=== PATIENT | male | born 1960 | race Caucasian/White ===

== ENCOUNTER 2020-09-12 23:56 | Emergency (ER) | payer OTHER ==
[~2020-09-12] VITALS: Ht 180.3 cm; Wt 117.9 kg
[~2020-09-12 23:56] MED LIST: BACTRIM DS TAB1 EACH PO; NOHOMEMEDICATIONS; PERCOCET 5-3251 EACH PO
[2020-09-13] MEDS ORDERED: LISINOPRIL10 MG PO (00:10)
[2020-09-13] MEDS ORDERED: XANAX 0.5 MG0.5 M1 PO (00:11)
[2020-09-13 00:42] LABS: ABSOLUTE LYMPHOCYTES 1.3 thou/uL (0.8-5.3); ABSOLUTE NEUTROPHILS 5.9 thou/uL (1.6-8.1); BASOPHILS 0.5 %; EOSINOPHILS 0.4 %; HEMATOCRIT 46.9 % (42.0-52.0); HEMOGLOBIN 16.3 gm/dL (14.0-18.0); LYMPHOCYTES 16.1 %; MCH 32.6 pg (26.0-34.0); MCHC 34.6 g/dL (28.0-37.0); MCV 94.1 fL (80.0-100.0); MONOCYTES 11.8 %; MPV 8.4 fl. (7.2-11.1); NUCLEATED RBCS 0 /100WBC; PLATELET COUNT* 231 thou/uL (150-400); POLYS 71.2 %; RBC 4.99 mil/uL (4.50-6.00); RDW-CV 12.4 % (10.5-14.5); WBC 8.2 thou/uL (4.0-11.0)
[2020-09-13 00:47] LABS: CREATININE 0.9 mg/dL (0.6-1.3); POTASSIUM 3.7 mmol/L (3.5-5.1)
[2020-09-13 00:50] LABS: INR 0.9
[2020-09-13 01:00] LABS: ALBUMIN 4.3 g/dL (3.4-5.0); MAGNESIUM 1.8 mg/dL (1.8-2.4); TOTAL BILIRUBIN 1.1 mg/dL (<0.1-1.0); TOTAL PROTEIN 8.1 g/dL (6.4-8.2)
[2020-09-13] MEDS ORDERED: PROTONIX40 MG PO (03:31)
[2020-09-13] MEDS ORDERED: ZOFRAN ODT4 MG PO (03:31)
[2020-09-13 03:44] VITALS: BP 143/89
--- NOTE | 2020-09-13 12:34 | EKG ---
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 Electrical: [facility] : 1960 Requested By: Chanell Mccollum Order Number: [id number] : Sandeep Joaquin Measurements Intervals [place] Rate: 86 P: 58 AK: 167 QRS: 15 QRSD: 99 T: 42 QT: 362 QTc: 433 Interpretive Statements Sinus rhythm Consider left atrial enlargement Low voltage, extremity leads No previous ECG available for comparison Electronically Signed On 09-13-2020 12:34:37 CDT by Sandeep Joaquin [email or web address] <ELECTRONICALLY SIGNED> By: Sandeep Joaquin MD, [facility] 09/13/20 1234 0001 0001 Sandeep Joaquin MD, FAC /EPI
== END 2020-09-13 03:46 | disposition home or self-care (01) ==
LOC: M.ERS 23:56
PROVIDERS: Emergency Medicine
DX: R10.13 Epigastric pain (principal); Z20.822 Contact with and (suspected) exposure to COVID-19; I10 Essential (primary) hypertension; N40.0 Benign prostatic hyperplasia without lower urinary tract symptoms

== ENCOUNTER 2020-11-18 19:04 | Emergency (ER) | payer OTHER ==
[~2020-11-18] VITALS: Ht 180.3 cm; Wt 117.9 kg
[~2020-11-18 19:04] MED LIST changes: +LISINOPRIL10 MG PO; +PROTONIX40 MG PO; +XANAX 0.5 MG0.5 M1 PO; +ZOFRAN ODT4 MG PO
[2020-11-18 19:08] VITALS: BP 172/108
== END 2020-11-18 19:17 | disposition left against medical advice (07) ==
LOC: M.ERS 19:04
DX: Z53.21 Procedure and treatment not carried out due to patient leaving prior to being seen by health care provider (principal)

== ENCOUNTER 2020-11-20 14:52 | Inpatient (IN) | payer OTHER ==
[~2020-11-20] VITALS: Ht 180.3 cm; Wt 120.7 kg
[2020-11-20 14:58] VITALS: BP 126/77
[2020-11-20 15:57] LABS: HEMATOCRIT 35.9 % (42.0-52.0); HEMOGLOBIN 12.8 gm/dL (14.0-18.0); MCH 33.1 pg (26.0-34.0); MCHC 35.7 g/dL (28.0-37.0); MCV 92.5 fL (80.0-100.0); MPV 7.7 fl. (7.2-11.1); NUCLEATED RBCS 0 /100WBC; PLATELET COUNT* 234 thou/uL (150-400); RBC 3.88 mil/uL (4.50-6.00); RDW-CV 12.7 % (10.5-14.5); WBC 14.4 thou/uL (4.0-11.0)
[2020-11-20 16:21] LABS: NT-PRO BRAIN NAT PEPTIDE < 5 pg/mL (<300)
[2020-11-20 16:25] LABS: MAGNESIUM < 0.1 mg/dL (1.8-2.4)
[2020-11-20 16:34] LABS: CALCIUM 8.7 mg/dL (8.5-10.1)
[2020-11-20 16:37] LABS: ABSOLUTE BASOPHILS 0.1 thou/uL (0.0-0.2); ABSOLUTE EOSINOPHILS 0.3 thou/uL (0.0-0.7); ABSOLUTE LYMPHOCYTES 1.9 thou/uL (0.8-5.3); ABSOLUTE MONOCYTES 0.7 thou/uL (0.0-1.2); ABSOLUTE NEUTROPHILS 11.4 thou/uL (1.6-8.1); HYPOCHROMASIA Occasional
[2020-11-20 16:38] LABS: LARGE PLATELETS OCCASIONAL; PLATELET ESTIMATE ADEQUATE
[2020-11-20 16:39] LABS: TOTAL BILIRUBIN 2.7 mg/dL (<0.1-1.0)
[2020-11-20 16:57] LABS: CALCIUM 8.7 mg/dL (8.5-10.1)
[2020-11-20 17:09] LABS: ALBUMIN 3.9 g/dL (3.4-5.0); MAGNESIUM 1.8 mg/dL (1.8-2.4); TOTAL BILIRUBIN 2.4 mg/dL (<0.1-1.0); TOTAL PROTEIN 7.3 g/dL (6.4-8.2)
[2020-11-20 17:27] LABS: URINE BLOOD NEGATIVE (Negative); URINE CLARITY CLEAR; URINE COLOR YELLOW; URINE GLUCOSE-RANDOM NEGATIVE (Negative); URINE KETONES 1+ (Negative); URINE LEUKOCYTES NEGATIVE (Negative); URINE NITRITE NEGATIVE (Negative); URINE PROTEIN TRACE (Negative); URINE SPECIFIC GRAVITY <= 1.005 (1.005-1.030)
[2020-11-20 17:28] LABS: ICTOTEST (BILI CONFIRMATORY) Negative (Negative); URINE BILIRUBIN 1+ (Negative)
[2020-11-20 18:23] LABS: AMP/METHAMP Negative (Negative); BARBITURATES Negative (Negative); BENZODIAZEPINES POSITIVE (Negative); COCAINE Negative (Negative); METHADONE Negative (Negative); OPIATES Negative (Negative); PCP Negative (Negative); THC Negative (Negative)
[2020-11-20 19:02] LABS: PROTIME 10.2 Seconds (9.20-11.50)
[2020-11-20 22:00] VITALS: BP 116/61
[2020-11-21] VITALS (7 sets, daily range): BP systolic 103–132; BP diastolic 50–80
[2020-11-21 03:18] LABS: ABSOLUTE LYMPHOCYTES 0.4 thou/uL (0.8-5.3); ABSOLUTE MONOCYTES 1.3 thou/uL (0.0-1.2); ABSOLUTE NEUTROPHILS 12.2 thou/uL (1.6-8.1); BASOPHILS 0.2 %; HEMOGLOBIN 11.9 gm/dL (14.0-18.0); LYMPHOCYTES 3.1 %; MCH 32.8 pg (26.0-34.0); MCHC 35.1 g/dL (28.0-37.0); MCV 93.6 fL (80.0-100.0); MONOCYTES 9.5 %; MPV 7.5 fl. (7.2-11.1); NUCLEATED RBCS 0 /100WBC; PLATELET COUNT* 219 thou/uL (150-400); POLYS 87.2 %; RBC 3.63 mil/uL (4.50-6.00); RDW-CV 12.4 % (10.5-14.5)
[2020-11-21 03:30] LABS: PROTIME 10.3 Seconds (9.20-11.50)
[2020-11-21 04:03] LABS: ALBUMIN 3.4 g/dL (3.4-5.0); CREATININE 1.1 mg/dL (0.6-1.3); MAGNESIUM 1.8 mg/dL (1.8-2.4); PHOSPHORUS* 3.1 mg/dL (2.5-4.9); POTASSIUM 4.6 mmol/L (3.5-5.1); TOTAL PROTEIN 6.7 g/dL (6.4-8.2)
--- NOTE | 2020-11-21 09:59 | EKG ---
[place] [address] ELECTROCARDIOGRAM REPORT Name: MAR DENNIS Room: [place] [address] ADM IN 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 : 1960 Requested By: Grace Farr Order Number: [id number] MD: Jose Luis Morejon Measurements Intervals [place] Rate: 95 P: 24 DE: 167 QRS: 21 QRSD: 89 T: 30 QT: 328 QTc: 413 Interpretive Statements Sinus rhythm Compared to ECG 09/13/2020 00:01:02 no change Electronically Signed On 11-21-2020 9:59:29 CDT by Jose Luis Morejon [email or web address] <ELECTRONICALLY SIGNED> By: Jose Luis Morejon MD, [facility] 11/21/20 0959 1524 1524 Jose Luis Morejon MD, [facility] /EPI
[2020-11-22 00:30] VITALS: BP 161/67
[2020-11-22 03:48] VITALS: BP 130/74
[2020-11-22 04:26] LABS: ABSOLUTE LYMPHOCYTES 0.5 thou/uL (0.8-5.3); ABSOLUTE MONOCYTES 1.3 thou/uL (0.0-1.2); ABSOLUTE NEUTROPHILS 11.4 thou/uL (1.6-8.1); BASOPHILS 0.2 %; EOSINOPHILS 0.2 %; HEMATOCRIT 31.7 % (42.0-52.0); HEMOGLOBIN 10.8 gm/dL (14.0-18.0); LYMPHOCYTES 3.7 %; MCH 32.4 pg (26.0-34.0); MCHC 34.1 g/dL (28.0-37.0); MONOCYTES 9.6 %; MPV 8.2 fl. (7.2-11.1); NUCLEATED RBCS 0 /100WBC; PLATELET COUNT* 203 thou/uL (150-400); POLYS 86.3 %; RBC 3.34 mil/uL (4.50-6.00); RDW-CV 12.8 % (10.5-14.5); WBC 13.2 thou/uL (4.0-11.0)
[2020-11-22 04:40] LABS: ALBUMIN 2.9 g/dL (3.4-5.0); CALCIUM 7.8 mg/dL (8.5-10.1); CREATININE 0.8 mg/dL (0.6-1.3); POTASSIUM 3.6 mmol/L (3.5-5.1); TOTAL BILIRUBIN 1.3 mg/dL (<0.1-1.0); TOTAL PROTEIN 6.3 g/dL (6.4-8.2)
[2020-11-22 04:48] LABS: % SATURATION 8 % (20-39); IRON 14 ug/dL (50-175)
--- NOTE | 2020-11-22 05:47 | NUR ---
RECEIVED PT FROM ED AT APPROX 2044. PT IS AWAKE AND ORIENTED X4. PT IS NOT IN DISTRESS, NO DESATURATIONS NOTED ON ROOM AIR. PT IS TRACING SR ON THE TELEVISION INSTALLER HELPER. CIWA SCORE CHARTED. PT IS ORIENTED ON THE USE OF CALL LIGHT AND ON THE ROOM SET UP. PT REMINDED TO HAVE NOTHING BY MOUTH. PT IS CLOSELY MONITORED.
[2020-11-22 05:51] LABS: ESR (SEDRATE) 42 mm/hr (0-20)
[2020-11-22 08:00] VITALS: BP 124/64
--- NOTE | 2020-11-22 09:31 | NUR ---
CM ASSESSMENT: PT A&O, INDEPENDENT WITH ADL'S, AND DRIVES. PT RESIDES AT HOME WITH SPOUSE. PT USES 0 DME. PT HAS 0 HX OF HH OR SNF. REVIEW OF PT'S CHART INFORMS THAT THE PT WAS ADMITTED FOR PANCREATITIS AND ALCOHOL WITHDRAWL. CM DISCUSSED ETOH USE AND ABUSE WITH THE PT. PT DECLINED INFO AND RESOURCES FOR ETOH TREATMENT. PT STATES 'I DON'T NEED ANY INFORMATION. I CAN QUIT WHENEVER I WANT TO'. CM WILL REMAIN AVAILABLE TO ASSIST AND FOLLOW NEEDED.
[2020-11-22 12:00] VITALS: BP 116/65
[2020-11-22 16:00] VITALS: BP 122/77
[2020-11-22 20:00] VITALS: BP 116/66
[2020-11-23] VITALS: BP 136/83
[2020-11-23 04:00] VITALS: BP 120/79
[2020-11-23 04:18] LABS: ABSOLUTE LYMPHOCYTES 0.7 thou/uL (0.8-5.3); ABSOLUTE MONOCYTES 1.1 thou/uL (0.0-1.2); ABSOLUTE NEUTROPHILS 9.4 thou/uL (1.6-8.1); BASOPHILS 0.4 %; EOSINOPHILS 0.4 %; HEMATOCRIT 29.5 % (42.0-52.0); HEMOGLOBIN 10.4 gm/dL (14.0-18.0); LYMPHOCYTES 6.6 %; MCH 32.9 pg (26.0-34.0); MCHC 35.1 g/dL (28.0-37.0); MCV 93.8 fL (80.0-100.0); MPV 7.7 fl. (7.2-11.1); NUCLEATED RBCS 0 /100WBC; PLATELET COUNT* 262 thou/uL (150-400); POLYS 82.6 %; RBC 3.15 mil/uL (4.50-6.00); RDW-CV 12.4 % (10.5-14.5); WBC 11.4 thou/uL (4.0-11.0)
[2020-11-23 04:33] LABS: ALBUMIN 2.6 g/dL (3.4-5.0); CALCIUM 7.9 mg/dL (8.5-10.1); CREATININE 0.7 mg/dL (0.6-1.3); MAGNESIUM 1.7 mg/dL (1.8-2.4); POTASSIUM 3.2 mmol/L (3.5-5.1); TOTAL BILIRUBIN 1.1 mg/dL (<0.1-1.0)
[2020-11-23 04:36] LABS: PROTIME 10.3 Seconds (9.20-11.50)
--- NOTE | 2020-11-23 06:32 | NUR ---
ASSUMED PT CARE AT APPROX 1930. PT IS AWAKE AND ORIENTED X4. PT IS NOT IN DISTRESS, NO DESATURATIONS NOTED ON ROOM AIR. PT IS TRACING SR ON THE PROJECT FINANCE ANALYST. CIWA SCORE CHARTED. PT IS NPO FOR MRCP TODAY. PAIN MEDS GIVEN PER MAR FOR LUQ PAIN WITH RELIEF. CALL LIGHT WITHIN REACH. HOURLY ROUNDING DONE FOR PT SAFETY.
[2020-11-23 08:00] VITALS: BP 130/81
[2020-11-23 10:08] LABS: HEPATITIS B SURFACE AG Negative (Negative)
--- NOTE | 2020-11-23 11:10 | NUR ---
PT REQUESTING TO TAKE MIRALAX AND SUPPOSITORY AFTER SURGERY THIS AFTERNOON. WILL CONTINUE PLAN OF CARE.
--- NOTE | 2020-11-23 11:20 | NUR ---
ASSUMED CARE OF PT AT 0730. PT A&0X4, DENIES ANY PAIN OR SHORTNESS OF BREATH AT THIS TIME. TRACING SR ON THE DIRECTOR OF SALES AND MARKETING. ON RA SAT UPPER 90'S. PT NPO FOR MRCP AND LAP ROCCO THIS AFTERNOON. PT STATES HE HASNT HAD A BOWEL MOVEMENT IN 4 DAYS-PT REQUESTING TO TAKE SUPPOSITORY AND MIRALAX AFTER SURGERY. IVF. PT UP AD MARA IN ROOM. PT GOAL FOR TODAY IS SURGERY THIS AFTERNOON AND REPLACE POTASSIUM AND MAGNESIUM PER ELECTROLYTE PROTOCOL. AM ASSESSMENT CHARTED. MEDICATIONS PER JUN. PT REPOSITIONS SELF. HOURLY ROUNDING OBSERVED. BED IN LOW POSITION. CALL LIGHT WITHIN REACH. WILL CONTINUE PLAN OF CARE.
[2020-11-23 12:00] VITALS: BP 138/92
--- NOTE | 2020-11-23 13:57 | EKG ---
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
--- NOTE | 2020-11-23 15:21 | NUR ---
PLAN OF CARE: PHYSICIAN INFORMS OF PLAN FOR PT TO HAVE GI PROCEDURE TOMORROW. CM D/C PLANNING NEEDS TBD. CM WILL REMAIN AVAILABLE TO ASSIST AND FOLLOW NEEDED.
[2020-11-23 16:00] VITALS: BP 163/99
[2020-11-23 20:00] VITALS: BP 119/72
[2020-11-24 01:14] VITALS: BP 129/84
[2020-11-24 04:43] LABS: ABSOLUTE LYMPHOCYTES 0.3 thou/uL (0.8-5.3); ABSOLUTE MONOCYTES 0.7 thou/uL (0.0-1.2); ABSOLUTE NEUTROPHILS 12.1 thou/uL (1.6-8.1); BASOPHILS 0.2 %; HEMATOCRIT 30.8 % (42.0-52.0); HEMOGLOBIN 10.5 gm/dL (14.0-18.0); LYMPHOCYTES 2.2 %; MCH 32.3 pg (26.0-34.0); MCHC 34.2 g/dL (28.0-37.0); MCV 94.4 fL (80.0-100.0); MONOCYTES 5.7 %; MPV 7.9 fl. (7.2-11.1); NUCLEATED RBCS 0 /100WBC; PLATELET COUNT* 312 thou/uL (150-400); POLYS 91.9 %; RBC 3.26 mil/uL (4.50-6.00); RDW-CV 12.6 % (10.5-14.5); WBC 13.2 thou/uL (4.0-11.0)
[2020-11-24 05:12] LABS: ALBUMIN 2.6 g/dL (3.4-5.0); CALCIUM 8.1 mg/dL (8.5-10.1); CREATININE 0.7 mg/dL (0.6-1.3); POTASSIUM 4.1 mmol/L (3.5-5.1); TOTAL BILIRUBIN 0.6 mg/dL (<0.1-1.0); TOTAL PROTEIN 6.5 g/dL (6.4-8.2)
[2020-11-24 05:34] VITALS: BP 142/96
--- NOTE | 2020-11-24 07:02 | NUR ---
ASSUMED PT CARE AT APPROX 1930. PT IS AWAKE AND ORIENTED X4. PT IS NOT IN DISTRESS, NO DESATURATIONS NOTED ON ROOM AIR. PT IS TRACING SR ON THE MANAGER LABOR RELATIONS. POST LAP ROCCO SITES DRY AND INTACT. PAIN MEDICINE GIVEN PER MAR FOR POST OP SITE PAIN. CALL LIGHT WITHIN REACH. HOURLY ROUNDING FOR PT SAFETY.
[2020-11-24 07:45] VITALS: BP 165/95
--- NOTE | 2020-11-24 11:06 | NUR ---
ASSUMED CARE OF AT 0730. PT A&0X4, DENIES ANY PAIN OR SHORTNESS OF BREATH AT THIS TIME. TRACING SR ON THE NAIL GALVANIZER. PT ON 3L NC CAPNO MONITOR-SAT UPPER 90'S-02 REMOVED AND PT SATTING MID 90'S ON RA AND DENIES ANY SHORTNESS OF BREATH. PT REFUSED STOOL SOFTENERS AND SUPPOSITORY THIS AM-EDUCATION GIVEN-PT STATES ONCE HE EATS SOME FOOD AND GOES HOME HE WILL BE ABLE TO GO TO THE BATHROOM. PT UP AD MARA IN ROOM. PT CURRENTLY TAKING A SHOWER WITH ASSIST FROM BUNCHER MACHINE. PT GOAL FOR TODAY IS DISCHARGE PLANNING TO HOME PENDING SURGERY. [facility] C/D/I. AM ASSESSMENT CHARTED. MEDICATIONS PER JUN. PT REPOSITIONS SELF. HOURLY ROUNDING OBSERVED. BED IN LOW POSITION. CALL LIGHT WITHIN REACH. WILL CONTINUE PLAN OF CARE.
[2020-11-24 13:13] VITALS: BP 165/95
[2020-11-24] MEDS ORDERED: ROXICODONE5 M2 PO (13:13)
--- NOTE | 2020-11-24 13:50 | NUR ---
DISCHARGE ORDERS RECEIVED. DISCHARGE INSTRUCTIONS, CARE NOTES, SCRIPT AND FOLLOW UP APPTS GIVEN TO PT. PT COMMUNICATES UNDERSTANDING OF DISCHARGE TEACHING. IV AND BANNER PAINTER REMOVED. PT DISCHARGED WITH ALL BELONGINGS AND PAPERWORK VIA WHEELCHAIR WITH NURSING STAFF TO SPOUSE OWN PERSONAL VEHICLE.
--- NOTE | 2020-11-24 15:27 | NUR ---
PLAN FOR THE PT TO D/C HOME WITH SELF-CARE AND NO CM NEEDS. CM WILL REMAIN AVAILABLE TO ASSIST AND FOLLOW NEEDED.
--- NOTE | 2020-11-25 10:20 | OP ---
[facility] [address] [place] [address] OPERATIVE REPORT Name: MRA DENNIS Sofía Room: [address]#: [id number] Admission: 11/20/20 Attend Phys: Augustine Yin Discharge: 11/24/20 Date of : 60 Report #: [id number] THIS REPORT FOR: cc: Day Bernard MD,Heath Murillo MD, DO ~ cc: Day Bernard MD, Nati Ellis DO DATE OF SURGERY: 11/23/2020 POSTOPERATIVE DIAGNOSES: Gallstone pancreatitis and alcoholism. POSTOPERATIVE DIAGNOSES: Gallstone pancreatitis and alcoholism. PROCEDURE: Laparoscopic cholecystectomy with immunofluorescence imaging and intraoperative cholangiogram as well and liver biopsy x 3. SURGEON: Heath Ray DO. DITTO MACHINE OPERATOR: Dr. Efren Farah, PGY1 and Leah Smith, student. ANESTHESIA: General endotracheal and TAP blocks. ESTIMATED BLOOD LOSS: 30 mL. COMPLICATIONS: None. DESCRIPTION OF PROCEDURE: After obtaining proper consents and discussing risks and complications with the patient, he was taken to the operating room, laid in the supine position and administered general endotracheal anesthetic. He was then prepped and draped in the usual sterile fashion. A timeout was performed. We confirmed the appropriate patient and procedure. Preoperative antibiotics had been given. He had also been given 2.5 mg of indocyanine green dye. We then made a small supraumbilical skin incision with a #11 scalpel blade and it was carried down through the skin into the subcutaneous tissue using electrocautery for hemostasis. Once the fascia was encountered, it was incised along the midline, grasped and elevated with Gonzalez clamps and divided further. The peritoneum was then bluntly opened using a hemostat. We then placed 2-0 Vicryl sutures in a [id number] fashion to secure the Bulmaro trocar, which was then inserted and insufflation was begun. Once insufflation was complete, full visual inspection of the anterior abdominal organs was performed. This revealed a dilated transverse colon, which was kind of sitting up in front of the liver. The gallbladder did appear to be inflamed. There was pericholecystic and perihepatic fluid identified, which was yellowish in color. The gallbladder did appear thickened with some inflammation surrounding it as well. We then placed the patient in reverse Trendelenburg position. A [address] [place] [address] OPERATIVE REPORT Name: SONNYMAR HO Room: [address]#: [id number] Admission: 11/20/20 Attend Phys: Augustine Yin Discharge: 11/24/20 Date of : 60 Report #: [id number] subxiphoid trocar was placed. I was then able to lift up the gallbladder and sweep down the transverse colon and we felt that it was safe to proceed, so we placed 2 more 5 mm trocars. Once these trocars were inserted, I was able to grasp and elevate the gallbladder. There were some adhesions of the omentum to the gallbladder, which were taken down using both blunt dissection as well as electrocautery. There was also noted to be very thick rind of fatty tissue around Jefe's pouch. I did dissect some of this away using electrocautery and then swept it down with blunt dissection using a [place] dissector. Once we were able to visualize Jefe's pouch, it was grasped and elevated. We then used immunofluorescence imaging and we were able to identify the common hepatic duct and common bile duct, but the gallbladder and cystic duct did not light up at all, which signified that there must be an obstruction of the cystic duct. I was able to under direct vision identify the cystic duct, which was completely dissected free, it was seen coursing directly into the gallbladder. We again also visualized the common hepatic duct and common bile duct. The cystic artery was located behind and in this fatty tissue, so it was dissected free. I then performed cholangiography by first dissecting the duct all the way up to the gallbladder cystic duct junction. I placed a clip at the gallbladder cystic duct junction. I then inserted a 14-gauge Angiocath through the abdominal wall and a Taut catheter was inserted through that and placed down into the cystic duct after a small jerrica was made. I then performed cholangiography, which showed a long tortuous cystic duct. The common hepatic duct and common bile duct appeared normal, although the common bile duct did have a very sharp tapering at the distal end. The intrahepatic duct all appeared normal. The extrahepatic ducts were somewhat dilated. We were also able to visualize the pancreatic duct, which was also somewhat dilated. There was good flow of contrast into the duodenum. We did give 1 mg of glucagon during this procedure as well to try to flush anything through. After giving this, the contrast and saline also flushed much easier, but there still appeared to be a good tapering at the distal common bile duct. At this point, we removed the cholangiogram catheter. We placed 3 clips proximally on the cystic duct. The cystic duct was then divided. The cystic artery was dissected free. It was seen coursing directly into the gallbladder. It was clipped proximally and distally and then divided. The gallbladder was then removed from the liver bed using electrocautery. In doing so, I did perforate the gallbladder and there was a small amount of bile that leaked out. This was immediately suctioned. I then continued to remove the gallbladder until it was all the way off. Once the gallbladder was completely removed, it was placed into an Endopouch. We then checked the cystic duct and cystic artery stump and liver bed for any leak or bleeding, there was none identified. The area was copiously irrigated and suctioned. We then turned our attention to taking liver biopsies. We inserted a spring loaded liver biopsy needle into the 14-gauge Angiocath and then took 3 random liver biopsies from the right lobe. These were placed on a saline-soaked Telfa and sent for pathologic examination as a permanent section. We then cauterized the 3 areas that were biopsied immediately [place] [address] OPERATIVE REPORT Name: MAR DNENIS Room: [address]#: [id number] Admission: 11/20/20 Attend Phys: Augustine Yin Discharge: 11/24/20 Date of : 60 Report #: [id number]. I then again checked the cystic duct and cystic artery stump and the liver bed as well as the areas of biopsy and everything appeared dry. We then stopped the insufflation. All air was released. The trocars were removed under direct vision. The gallbladder was removed through the umbilical incision. We then closed the umbilical fascia using the 2 previously placed 0 Vicryl sutures plus 2 additional 0 Vicryl suture. Skin incisions were all closed using 4-0 Monocryl subcuticular stitches. Dermabond was placed. The patient was then awakened in the operating room and transported to recovery room in stable condition. Sponge, needle and instrument counts were all correct at the end of the procedure. <ELECTRONICALLY SIGNED> By: Heath Ray DO 11/25/20 1020 1431 1557Aluis Ray DO /nt
== END 2020-11-24 13:52 | disposition home or self-care (01) | DRG 417 ==
LOC: M.ERS 14:52 → M.TBA-ER 17:54 → M.2W 11-21 20:54
PROVIDERS: Emergency Medicine; Internal Medicine; Internal Medicine Gastroenterology; Physician Assistant; Surgery; ADMIT Internal Medicine; ATTEND Internal Medicine
PROC: 0FB04ZX Excision of Liver, Percutaneous Endoscopic Approach, Diagnostic (ICD-10-PCS; principal; 2020-11-24)
PROC: BF121ZZ Fluoroscopy of Gallbladder using Low Osmolar Contrast (ICD-10-PCS; principal; 2020-11-24)
PROC: 0FT44ZZ Resection of Gallbladder, Percutaneous Endoscopic Approach (ICD-10-PCS; principal; 2020-11-24)
DX: K85.20 Alcohol induced acute pancreatitis without necrosis or infection (principal); K57.11 Diverticulosis of small intestine without perforation or abscess with bleeding; K80.00 Calculus of gallbladder with acute cholecystitis without obstruction; E87.1 Hypo-osmolality and hyponatremia; F10.230 Alcohol dependence with withdrawal, uncomplicated; I10 Essential (primary) hypertension; F41.9 Anxiety disorder, unspecified; E83.42 Hypomagnesemia; E78.00 Pure hypercholesterolemia, unspecified; E87.6 Hypokalemia; K75.9 Inflammatory liver disease, unspecified; K74.60 Unspecified cirrhosis of liver; D64.9 Anemia, unspecified; Z20.822 Contact with and (suspected) exposure to COVID-19; Z79.899 Other long term (current) drug therapy; Z87.891 Personal history of nicotine dependence